=== PATIENT | male | born 1940 | race Caucasian/White ===

== ENCOUNTER → 2017-10-03 14:46 | Outpatient (CLI) | payer MEDICARE, SELFPAY ==
--- NOTE | 2017-10-03 | DI.MRI.S_ITS ---
PROCEDURE: MR HEAD/BRAIN WO CON INDICATIONS: NEUROFIBROMATOSIS, HYPOTHYROID, ADRENAL INSUFFICIENCY TECHNIQUE: Non-contrast axial T1 spin echo, axial T2 fast spin echo, sagittal and axial FLAIR, coronal T2 fast spin echo, axial gradient echo, axial diffusion and ADC through the brain. COMPARISON: [facility], MR, STROKE PROTOCOL, 11/12/2011, 7:52. [facility], MR, BRAIN (IAC) W AND WO CONTRAST, 08/07/2009, 10:01. [facility], CT, HEAD WITHOUT CONTRAST, 11/25/2016, 16:33. FINDINGS: Image quality: Excellent. CSF spaces: Ventricles appear symmetric in size and shape. Basal cisterns are patent. No extra-axial fluid collections. Brain: No intracranial bleeds or mass effects. There is cerebral volume loss for age. There are periventricular and deep white matter chronic small vessel ischemic changes. Brainstem appears normal. Diffusion-weighted images show no acute ischemic insults. No chronic ischemic insults. Normal intravascular flow voids are present. Skull and face: Calvarial bone marrow is normal in signal. Orbits are normal. Sinuses: Sinuses and mastoids are clear. IMPRESSION: 1. Mild volume loss and minimal small vessel ischemic disease. 2. No acute process. No recent infarct. Dictated by: Donn Noel M.D. on 10/03/2017 at 16:09 Approved by: Donn Noel M.D. on 10/03/2017 at 16:11
== END ==
PROVIDERS: Family Provider Internal Medicine; PCP Internal Medicine; Visit Provider Internal Medicine
DX: Q85.00 Neurofibromatosis, unspecified (principal); E03.9 Hypothyroidism, unspecified; E27.40 Unspecified adrenocortical insufficiency
CPT/HCPCS: 70551

== ENCOUNTER → 2018-09-18 07:34 | Outpatient (CLI) | payer MEDICARE, SELFPAY ==
[2018-09-18 09:41] LABS: Free T4, Direct Thyroxine 0.98 ng/dL (0.78-2.19)
[2018-09-18 09:42] LABS: Alanine Aminotransferase 21 IU/L (21-72); Albumin 4.1 g/dL (3.5-5.0); Albumin Globulin Ratio 1.2 (1.0-2.8); Alkaline Phosphatase 60 U/L (38-126); Aspartate Aminotransferase 25 IU/L (17-59); BUN Creatinine Ratio 16.7 (6-22); Bilirubin Total 0.4 mg/dL (0.2-1.3); Blood Urea Nitrogen 15 mg/dL (9-20); Carbon Dioxide 29 mmol/L (22-32); Chloride 104 mmol/L (98-107); Estimated Glomerular Filt Rate > 60.0 mL/min (>60); Globulin 3.3 g/dL (1.7-4.1); Glucose 88 mg/dL (80-110); HEMOLYSIS < 15 (0-50); Potassium 4.2 mmol/L (3.4-5.1); Sodium 140 mmol/L (137-145); Total Protein 7.4 g/dL (6.3-8.2)
[2018-09-18 09:56] LABS: Thyroid Stimulating Hormone 4.25 uIU/mL (0.47-4.68)
[2018-09-18 10:13] LABS: Cortisol AM (Before 10AM) 8.72 ug/dL (4.46-22.7)
== END ==
PROVIDERS: PCP Internal Medicine; Visit Provider Internal Medicine
DX: E27.40 Unspecified adrenocortical insufficiency (principal); E03.9 Hypothyroidism, unspecified
CPT/HCPCS: 36415; 80053; 82533; 84439; 84443

== ENCOUNTER → 2018-09-23 13:40 | Outpatient (CLI) | payer MEDICARE, SELFPAY | PROVIDERS: PCP Internal Medicine; Visit Provider Internal Medicine | DX: M85.852 Other specified disorders of bone density and structure, left thigh (principal); E07.9 Disorder of thyroid, unspecified; Z79.52 Long term (current) use of systemic steroids | CPT/HCPCS: 77080 ==

== ENCOUNTER → 2020-01-11 07:39 | Outpatient (CLI) | payer MEDICARE, SELFPAY ==
[2020-01-11 08:42] LABS: Add Manual Diff / Slide Review NO; Basophils Absolute Auto 0 /uL (0-100); Basophils Percent Auto 0.6 % (0-2); Eosinophils Absolute Auto 200 /uL (0-450); Eosinophils Percent Auto 3.1 % (2-4); Hematocrit 44.8 % (41-53); Hemoglobin 14.9 g/dL (13.5-17.5); Lymphocytes Absolute Auto 2000 /uL (1100-4500); Lymphocytes Percent Auto 31.3 % (25-40); Mean Corpuscular HGB Conc 33.4 % (30-36); Mean Corpuscular Volume 92.8 fL (80-100); Monocytes Absolute Auto 800 /uL (0-900); Monocytes Percent Auto 11.6 % (3-14); Neutrophils Absolute Auto 3500 /uL (1500-7000); Neutrophils Percent Auto 53.4 % (50-75); Platelet Count 281 X10^3/uL (150-400); Red Blood Cell Count 4.83 X10^6/uL (4.5-5.9); Red Cell Distribution Width 13.9 % (11.6-14.8); White Blood Cell Count 6.5 X10^3/uL (4.5-11.0)
[2020-01-11 08:46] LABS: Alanine Aminotransferase 25 IU/L (<50); Albumin Globulin Ratio 1.2 (1.0-2.8); Alkaline Phosphatase 58 U/L (38-126); Aspartate Aminotransferase 32 IU/L (17-59); BUN Creatinine Ratio 15.5 (6-22); Bilirubin Total 0.7 mg/dL (0.2-1.3); Blood Urea Nitrogen 16 mg/dL (9-20); Calcium 9.4 mg/dL (8.4-10.2); Carbon Dioxide 31 mmol/L (22-32); Chloride 106 mmol/L (98-107); Estimated Glomerular Filt Rate > 60.0 mL/min (>60); Globulin 3.3 g/dL (1.7-4.1); Glucose 97 mg/dL (80-110); HEMOLYSIS < 15 (0-50); Potassium 4.7 mmol/L (3.4-5.1); Sodium 140 mmol/L (137-145); Total Protein 7.3 g/dL (6.3-8.2)
[2020-01-11 09:11] LABS: Cortisol AM (Before 10AM) 9.49 ug/dL (4.46-22.7)
[2020-01-11 09:17] LABS: TSH w/ Reflex to FT4 4.12 uIU/mL (0.47-4.68)
== END ==
PROVIDERS: PCP Internal Medicine; Referring Provider Internal Medicine; Visit Provider Internal Medicine
DX: E03.9 Hypothyroidism, unspecified (principal); I10 Essential (primary) hypertension; M81.0 Age-related osteoporosis without current pathological fracture; E27.40 Unspecified adrenocortical insufficiency
CPT/HCPCS: 36415; 80053; 82533; 84443; 85025

== ENCOUNTER → 2020-03-27 14:17 | Outpatient (CLI) | payer MEDICARE, SELFPAY ==
--- NOTE | 2020-03-27 14:19 | DI.RAD.S_ITS ---
PROCEDURE: XR LUMBAR SPINE 2-3V INDICATIONS: Evaluate and treat TECHNIQUE: 3 views of the lumbar spine were acquired. COMPARISON: None. FINDINGS: Bones: 5 [id number] vertebrae are present. There is mild convex rightward scoliotic bony alignment. No vertebral body compression fractures. No suspicious bony lesions. Soft tissues: Overlying bowel gas pattern is normal. No suspicious soft tissue calcifications. IMPRESSION: No trauma found, slight convex rightward scoliosis. No subluxation seen. Dictated by: Catalino Meeks M.D. on 03/27/2020 at 15:01 Approved by: Catalino Meeks M.D. on 03/27/2020 at 15:04
--- NOTE | 2020-03-27 14:19 | DI.RAD.S_ITS ---
PROCEDURE: XR HIP W PEL IF DONE RT 2V INDICATIONS: right hip/groin pain TECHNIQUE: AP pelvis with lateral view(s) of the right hip. COMPARISON: None. FINDINGS: Bones: No fractures or dislocations. Pelvic ring appears intact. No suspicious bony lesions. Soft tissues: The visualized bowel gas pattern is normal. No suspicious soft tissue calcifications. IMPRESSION: Normal appearing sacroiliac joints, mild degenerative hip joint space narrowing consistent with mild osteoarthritis. This is symmetric bilaterally. No trauma found Dictated by: Catalino Meeks M.D. on 03/27/2020 at 15:00 Approved by: Catalino Meeks M.D. on 03/27/2020 at 15:01
== END ==
PROVIDERS: PCP Family Medicine; Referring Provider Family Medicine; Visit Provider Family Medicine
DX: M25.551 Pain in right hip (principal); R10.30 Lower abdominal pain, unspecified; E03.9 Hypothyroidism, unspecified; I10 Essential (primary) hypertension; Q85.02 Neurofibromatosis, type 2; R10.2 Pelvic and perineal pain
CPT/HCPCS: 36415; 72100; 73502; 80053; 82043; 82570; 84443

== ENCOUNTER → 2020-03-27 14:39 | Outpatient (CLI) | payer MEDICARE, SELFPAY ==
[2020-03-27 16:13] LABS: Alanine Aminotransferase 20 IU/L (<50); Albumin Globulin Ratio 1.4 (1.0-2.8); Alkaline Phosphatase 54 U/L (38-126); Aspartate Aminotransferase 30 IU/L (17-59); Bilirubin Total 0.6 mg/dL (0.2-1.3); Blood Urea Nitrogen 19 mg/dL (9-20); Calcium 9.2 mg/dL (8.4-10.2); Carbon Dioxide 30 mmol/L (22-32); Chloride 103 mmol/L (98-107); Estimated Glomerular Filt Rate > 60.0 mL/min (>60); Globulin 2.8 g/dL (1.7-4.1); Glucose 100 mg/dL (80-110); HEMOLYSIS < 15 (0-50); Potassium 4.6 mmol/L (3.4-5.1); Sodium 137 mmol/L (137-145); Total Protein 6.8 g/dL (6.3-8.2)
[2020-03-27 16:44] LABS: TSH w/ Reflex to FT4 1.22 uIU/mL (0.47-4.68)
[2020-03-27 17:09] LABS: Creatinine Urine Random 38.5 mg/dL
[2020-03-27 17:13] LABS: Microalbumin Urine Random < 0.6 mg/dL (0-1.6)
== END ==
PROVIDERS: PCP Family Medicine; Referring Provider Family Medicine; Visit Provider Family Medicine
DX: E03.9 Hypothyroidism, unspecified (principal); I10 Essential (primary) hypertension; Q85.02 Neurofibromatosis, type 2; R10.2 Pelvic and perineal pain
CPT/HCPCS: 36415; 80053; 82043; 82570; 84443

== ENCOUNTER → 2020-04-05 17:47 | Outpatient (CLI) | payer MEDICARE, SELFPAY ==
--- NOTE | 2020-04-05 17:49 | DI.MRI.S_ITS ---
PROCEDURE: MR HIP RT WO CON INDICATIONS: persistent right groin pain TECHNIQUE: Noncontrast coronal T1 spin echo and STIR through the bony pelvis. Coronal and axial T2 fast spin echo with fat saturation, sagittal T1 spin echo, and oblique axial T2 fast spin echo with fat saturation through the hip. COMPARISON: None. FINDINGS: Image quality: Excellent. Bones and joints: Mild to moderate right hip joint osteoarthritis is seen with joint space narrowing and subchondral sclerosis. There is no marrow edema. No intraosseous lesions or fractures. No avascular necrosis of the femoral heads. The visualized lower lumbar spine appears normally aligned. Tendons and ligaments: The gluteus medius and minimus tendons appear intact, without associated muscle atrophy. The nearby proximal iliotibial band also appears intact. The iliopsoas tendon appears intact, without adjacent bursal fluid collections or evidence for impingement syndrome. The origin of the hamstring tendon is intact at the ischial tuberosity, as well as the associated sacrotuberous ligament. The straight and reflected heads of the rectus femoris muscle origin appear intact, as well as the conjoint tendon. The ligamentum teres appears intact where visualized. Labrum and cartilage: Subtle signal abnormality in superior anterior labrum is seen concerning for focal labral tear in this area. Cartilage surface of the femoral head appears thinned. The alpha angle of the femur is within normal limits at less than 55 degrees. Soft tissues: Visualized muscles demonstrate normal bulk and internal signal. Quadratus femoris muscle demonstrates no internal edema to suggest ischiofemoral impingement. The proximal sciatic neurovascular bundle appears normal adjacent to the hamstring tendons. No free pelvic fluid. Bladder wall thickness is normal. Genitourinary structures and bowel loops appear normal where visualized. IMPRESSION: 1. Mild to moderate right hip joint osteoarthritis and thinning of articulating cartilage. No marrow edema. No fracture or dislocation. No evidence of avascular necrosis of femoral head. 2. Subtle signal abnormality involving superior anterior labrum sick concerning for subtle focal superior anterior labral tear. 3. No gross muscle or tendon signal abnormality. No evidence of bursitis. Dictated by: Mehrdad Alfaro M.D. on 04/07/2020 at 9:41 Approved by: Mehrdad Alfaro M.D. on 04/07/2020 at 9:47
== END ==
PROVIDERS: PCP Family Medicine; Referring Provider Family Medicine; Visit Provider Family Medicine
DX: M25.551 Pain in right hip (principal); M16.11 Unilateral primary osteoarthritis, right hip
CPT/HCPCS: 73721